=== PATIENT | female | born 1965 | race Caucasian/White ===

== ENCOUNTER 2019-02-17 11:23 | Inpatient (IN) | payer OTHER ==
[~2019-02-17] VITALS: Ht 157.5 cm; Wt 104.2 kg
[~2019-02-17 11:23] MED LIST: CIPRO500 MG PO; FLAGYL500 MG PO; IBUPROFEN 800800 M1 PO; NORCO 5-325 TA1 EACH PO; ONDANSETRON HCL4 M2 PO
[2019-02-17 11:27] VITALS: BP 122/73
[2019-02-17 11:56] LABS: ABSOLUTE BASOPHILS 0.1 thou/uL (0.0-0.2); ABSOLUTE EOSINOPHILS 0.2 thou/uL (0.0-0.7); ABSOLUTE LYMPHOCYTES 1.8 thou/uL (0.8-5.3); ABSOLUTE MONOCYTES 0.7 thou/uL (0.0-1.2); ABSOLUTE NEUTROPHILS 6.9 thou/uL (1.6-8.1); BASOPHILS 0.7 %; EOSINOPHILS 1.6 %; HEMATOCRIT 43.9 % (37.0-47.0); HEMOGLOBIN 15.1 gm/dL (12.0-15.0); LYMPHOCYTES 18.9 %; MCH 29.4 pg (26.0-34.0); MCHC 34.3 g/dL (28.0-37.0); MCV 85.6 fL (80.0-100.0); MONOCYTES 6.8 %; MPV 7.3 fl. (7.2-11.1); NUCLEATED RBCS 0 /100WBC; PLATELET COUNT* 255 thou/uL (150-400); RBC 5.13 mil/uL (4.20-5.00); RDW-CV 13.6 % (10.5-14.5); WBC 9.6 thou/uL (4.0-11.0)
[2019-02-17 12:07] LABS: ANION GAP 7 mmol/L (7-16); BUN 29 mg/dL (7-18); CALCIUM 9.6 mg/dL (8.5-10.1); CHLORIDE 99 mmol/L (98-107); CO2 29 mmol/L (21-32); GLUCOSE 120 mg/dL (70-99); SODIUM 135 mmol/L (136-145)
--- NOTE | 2019-02-17 12:08 | NUR ---
RT AT BEDSIDE ADMINISTERING BREATHING TREATMENT.
[2019-02-17 12:16] LABS: ALBUMIN 3.4 g/dL (3.4-5.0); ALKALINE PHOSPHATASE 102 U/L (46-116); LIPASE 68 U/L (73-393); SGOT 28 U/L (15-37); SGPT 33 U/L (30-65); TOTAL BILIRUBIN 0.6 mg/dL (<0.1-1.0); TOTAL PROTEIN 7.8 g/dL (6.4-8.2); TROPONIN-I LEVEL <0.06 ng/mL (<0.06)
[2019-02-17] MEDS ORDERED: MS CONTIN 60 MG60 M1 PO (12:41)
[2019-02-17] MEDS ORDERED: NEURONTIN 300300 M1 PO (12:42)
[2019-02-17] MEDS ORDERED: OXYCODONE HCL E10 MG PO (12:42)
[2019-02-17] MEDS ORDERED: TUMS PO (12:43)
--- NOTE | 2019-02-17 13:15 | NUR ---
NURSE IN ROOM, TALKING WITH PT. PT EXPRESSED CONCERN ABOUT A MENINGIOMA DIAGNOSED IN 2008, RECHECKED IN 2009. PT ASKED NURSE IF THIS COULD BE A REASON FOR SYNCOPE EPISODES. NURSE STATED SHE WOULD TALK WITH DR. PERSAUD ABOUT PT CONCERNS. PT STATED APPRECIATION. NURSE TALKED WITH DR. PERSAUD, DR. PERSAUD STATED "NO" WHEN NURSE ASKED IF MENINGIOMA WAS CAUSE. PT RELAYED INFORMATION.
--- NOTE | 2019-02-17 16:12 | EKG ---
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: MS : 1965 Requested By: Don Roe Order Number: [id number] MD: Krzysztof Mg Measurements Intervals [place] Rate: 75 P: 6 MT: 152 QRS: 85 QRSD: 98 T: 9 QT: 398 QTc: 445 Interpretive Statements Sinus rhythm RSR' in V1 or V2, right VCD Baseline wander in lead(s) I,III,aVL,aVF,V3,V5 Compared to ECG 04/16/2017 19:36:27 RSR' in V1 or V2 now present T-wave abnormality no longer present Electronically Signed On 02-17-2019 16:11:52 CDT by Krzysztof Mg [email or web address] <ELECTRONICALLY SIGNED> By: Krzysztof Mg MD, [facility] 02/17/19 1611 1210 1210 Krzysztof Mg MD, [facility] /EPI
[2019-02-17 18:11] VITALS: BP 120/71
[2019-02-17 18:21] VITALS: BP 120/71
[2019-02-17 20:00] VITALS: BP 126/79
[2019-02-17] MEDS ORDERED: ALEVE220 MG PO (20:07)
[2019-02-17] MEDS ORDERED: MUCINEX600 MG PO (20:08)
[2019-02-18] VITALS: BP 105/63
[2019-02-18 04:00] VITALS: BP 111/71
--- NOTE | 2019-02-18 05:36 | NUR ---
ASSUMED CARE OF PT AFTER REPORT AT 1930. PT A&OX4. VSS. ADMISSION HISTORY & PHYSICAL ASSESSMENT COMPLETED AND CHARTED. PT ON RA. PT TRACING SR ON TELE. PT UPSTANDBY TO RESTROOM. PT COMPLAINES OF HEADACHE & NAUSEA- MEDS GIVEN PER NOV. PT EXPRESSED CONCERN OF HER MEDS- DR MACKEY INFORMED WITH NEW ORDERS. PT RESTED WELL ON BED. CALL LIGHT WITHIN REACH.
[2019-02-18 07:19] VITALS: BP 119/60
--- NOTE | 2019-02-18 10:51 | NUR ---
SW met with pt and pt mother to complete initial assessment, introduce self, and SW role. Pt alert, oriented, pleasant. Pt lives at home alone with her 6 dogs. Pt has a good support system in neighbors and family. 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 Pt does not anticipate any dc needs at this time. SW to continue to follow to assist with safe dc planning.
[2019-02-18 12:40] VITALS: BP 118/62
--- NOTE | 2019-02-18 16:22 | NUR ---
ASSESSMENT COMPLETE. PT ALERT AND ORIENTED X4. PT GIVEN PRN IBUPROFEN FOR HEADACHE ONE TIME DURING DAY. PT DENIES N/V. TOLERATING MEALS. PT HAD MRI OF HEAD THIS AFTERNOON. NEURO CONSULTED. ECHO AND CAROTID US ORDERED WELL. IV FLUIDS DC'D, ABX CHANGED TO PO. PT HAS LEFT LIMB ALERT. PT HAD IV PLACED BY INFUSION IN RIGHT WRIST, SL. PT IS UP WITH STEADY GAIT. NSR ON TELE MONITOR. LIDAQAUTE SATS ON ROOM AIR, VSS. PT DENIES DIZZINESS WITH STANDING. DENIES SYNCOPE SINCE ADMISSION. SEE ASSESSMENT AND VITALS FOR OTHER DETAILS. CALL LIGHT WITHIN REACH, WILL CONTINUE PLAN OF CARE
[2019-02-18 20:00] VITALS: BP 118/72
[2019-02-18 23:56] VITALS: BP 104/56
[2019-02-19 03:52] VITALS: BP 112/65
[2019-02-19 05:21] LABS: CALCIUM 8.8 mg/dL (8.5-10.1); CREATININE 0.7 mg/dL (0.6-1.3)
[2019-02-19 05:47] LABS: HEMATOCRIT 39.8 % (37.0-47.0); HEMOGLOBIN 13.2 gm/dL (12.0-15.0); MCH 29.1 pg (26.0-34.0); MCHC 33.1 g/dL (28.0-37.0); MCV 87.9 fL (80.0-100.0); MPV 8.2 fl. (7.2-11.1); RBC 4.52 mil/uL (4.20-5.00); RDW-CV 14.2 % (10.5-14.5); WBC 8.7 thou/uL (4.0-11.0)
--- NOTE | 2019-02-19 06:08 | NUR ---
ASSUMED CARE OF PT AFTER REPORT AT 1930. PT A&OX4. VSS. PHYSICAL ASSESSMENT COMPLETED AND CHARTED. PT ON RA. PT TRACING SR ON TELE. PT UPSTANDBY TO RESTROOM. PT DENIES ANY PAIN OR DISCOMFORT. PT RESTED WELL ON BED. HOURLY ROUNDING OBSERVED. CALL LIGHT WITHIN REACH.
[2019-02-19 08:00] VITALS: BP 121/64
--- NOTE | 2019-02-19 08:40 | NUR ---
RECEIVED REPORT FROM ALCIDES AND ASSUMED CARE OF PT @ 5809.PT IS A/O X4,VSS,TRACING SR ON THE MONITOR.IV PATENT AND SALINE LOCKED.PT IS CALM AND COOPERATIVE WITH NO C/O PAIN.PT IS UP AD WILBERT IN THE ROOM.CALL LIGHT WITHIN REACH.WILL CONTINUE TO MONITOR.
--- NOTE | 2019-02-19 12:14 | 2DMMODE ---
[place] [address] 2 D/M-MODE ECHOCARDIOGRAM Name: PHYLILS WORLEY Room: [address] IN [facility]#: [id number] Admission: 02/17/19 Attend Phys: Gene Moran Discharge: Date of : 65 Date of Service: 02/19/19 1214 Report #: [id number] THIS REPORT FOR: //name// APPROVED REPORT Study performed: 02/18/2019 16:33:25 EXAM: Comprehensive 2D, Doppler, and color-flow Echocardiogram Patient Location: In-Patient Room #: [facility] Status: routine BSA: 2.03 HR: 87 bpm BP: 118/62 mmHg Rhythm: NSR Other Information Study Quality: Good Indications Syncope 2D Dimensions IVSd: 11.68 (7-11mm) LVOT Diam: 22.66 (18-24mm) LVDd: 41.03 mm PWd: 12.64 (7-11mm) Ascending Ao: 30.52 (22-36mm) LVDs: 28.89 (25-40mm) Aortic Root: 35.38 mm Volumes Left Atrial Volume (Systole) LA ESV Index: 17.30 mL/m2 Aortic Valve AoV Peak Zafar.: 1.28 m/s AO Peak Gr.: 6.55 mmHg LVOT Max P.60 mmHg AO Mean Gr.: 3.40 mmHg LVOT Mean P.63 mmHg LVOT Max V: 1.18 m/s AO V2 VTI: 22.82 cm LVOT Mean V: 0.74 m/s MARCIE (VTI): 4.51 cm2 LVOT V1 VTI: 25.51 cm Mitral Valve E/A Ratio: 1.47 MV Decel. Time: 198.91 ms MV E Max Zafar.: 0.98 m/[place] [address] 2 D/M-MODE ECHOCARDIOGRAM Name: PHYLLIS WORLEY Room: [address] IN .R.#: [id number] Admission: 02/17/19 Attend Phys: Gene Moran Discharge: Date of : 65 Date of Service: 02/19/19 1214 Report #: [id number] MV PHT: 57.68 ms MVA (PHT): 3.81 cm2 TDI E/Lateral E': 7.54 E/Medial E': 8.17 Medial E' Zafar.: 0.12 m/s Lateral E' Zafar.: 0.13 m/s Pulmonary Valve PV Peak Zafar.: 1.09 m/s PV Peak Gr.: 4.76 mmHg Tricuspid Valve RAP Estimate: 5.00 mmHg TR Peak Gr.: 19.67 mmHg RVSP: 24.00 mmHg PA Pressure: 24.00 mmHg Left Ventricle The left ventricle is normal size. There is normal LV segmental wall motion. There is normal left ventricular wall thickness. Left ventricular systolic function is normal. The left ventricular ejection fraction is within the normal range. LVEF is 60-65%. Grade I - abnormal relaxation pattern. Right Ventricle The right ventricle is normal size. The right ventricular systolic function is normal. Atria The left atrium size is normal. The right atrium size is normal. Aortic Valve The aortic valve is normal in structure. Trace aortic regurgitation. There is no aortic valvular stenosis. Mitral Valve The mitral valve is normal in structure. Trace mitral regurgitation. No evidence of mitral valve stenosis. Tricuspid Valve The tricuspid valve is normal in structure. Mild tricuspid regurgitation. No pulmonary hypertension. Pulmonic Valve The pulmonary valve is normal in structure. [place] [address] 2 D/M-MODE ECHOCARDIOGRAM Name: PHYLLIS WORLEY Room: [address]#: [id number] Admission: 02/17/19 Attend Phys: Gene Moran Discharge: Date of : 65 Date of Service: 02/19/19 1214 Report #: [id number] Great Vessels The aortic root is normal in size. IVC is normal in size and collapses >50% with inspiration. Pericardium There is no pericardial effusion. <Conclusion> LVEF is 60-65%. The left ventricular diastolic function is normal. There is normal LV segmental wall motion. Grade I - abnormal relaxation pattern. There is no aortic valvular stenosis. Trace aortic regurgitation. Trace mitral regurgitation. Mild tricuspid regurgitation. No pulmonary hypertension. <ELECTRONICALLY SIGNED> By: Dawson Lisa MD, FACC 02/19/19 1214 13 13 Dawson Lisa MD, FACC /INF
[2019-02-19 16:21] VITALS: BP 131/69
--- NOTE | 2019-02-19 17:52 | NUR ---
VSS.CARDIAC MONITORING IN PLACE WITH NO CHANGES.PT PROGRESSING TOWARDS GOALS AND POTENTIAL DISCHARGE FOR TOMORROW.PAIN MANAGED WELL WTIH PO MEDICATIONS.IV PATENT AND SALINE LOCKED.EEG COMPLETED TODAY.ECHO COMPLETED TODAY.PT INFORMED OF PLAN OF CARE AND COMMUNICATES UNDERSTANDING.HOURLY ROUNDING COMPLETED FOR PT SAFETY.CALL LIGHT WITHIN REACH.WILL CONTINUE TO MONITOR FOR DURATION OF SHIFT.
[2019-02-19 20:00] VITALS: BP 114/70
[2019-02-19 23:49] VITALS: BP 117/61
[2019-02-20 04:00] VITALS: BP 113/43
--- NOTE | 2019-02-20 05:30 | NUR ---
ASSUMED CARE OF PT AFTER REPORT AT 1930. PT A&OX4. VSS. PHYSICAL ASSESSMENT COMPLETED AND CHARTED. PT ON RA. PT TRACING SR ON TELE. PT DENIES ANY PAIN OR DISCOMFORT. PT RESTED WELL ON BED. HOURLY ROUNDING OBSERVED. CALL LIGHT WITHIN REACH.
--- NOTE | 2019-02-20 08:00 | NUR ---
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 LS CLEAR IN BILATERAL UPPER LOBES, DIMINISHED IN LOWER LOBES. RA. POSSIBLE DISCHARGE THIS SHIFT, EEG RESULTS PENDING, WILL CONT POC.
--- NOTE | 2019-02-20 11:27 | NUR ---
Nutrition: pt with class III mobrid obesity. Pt reports good appetite, denied acute nutrition concerns. Meds and labs reviewed. Pt declined diet edu. Assessed at low nutrition risk.
[2019-02-20 12:46] VITALS: BP 108/73
[2019-02-20] MEDS ORDERED: CEFDINIR300 MG PO (16:04)
[2019-02-20] MEDS ORDERED: AZITHROMYCIN 2250 MG PO (16:04)
[2019-02-20 16:47] VITALS: BP 108/73
[2019-02-20 17:00] VITALS: BP 108/73
[2019-02-20 17:32] VITALS: BP 108/73
--- NOTE | 2019-02-20 18:00 | NUR ---
PT DISCHARGED FROM FACILITY AT APPROX 1745 VIA WHEELCHAIR WITH MOTHER AND NURSING STAFF. PT EDUCATED ON ALL DISCHARGE INSTRUCTIONS INCLUDING FOLLOW UP APPTS AND MEDICATIONS. 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
--- NOTE | 2019-02-21 22:22 | EEG ---
[address] [address] EEG STUDY REPORT Name: BRUNILDAPHYLLIS Horace Room: [address]#: [id number] Admission: 02/17/19 Attend Phys: Gene Rollins, Discharge: 02/20/19 Date of : 65 Report #: [id number] THIS REPORT FOR: //name// CC: Trino Rollins DATE OF SERVICE: 02/19/2019 This patient is being evaluated for syncope. EEG was done by placing the electrodes by standard 10-20 system of electrode placement. Both referential and sequential montages were used for recording. Background activity in this patient's EEG is about 11 Hz and 40 microvolt. The patient became drowsy and that is associated with bilateral slowing and a few vertex sharp waves. Photic stimulation was unremarkable. Throughout the record, no active epileptiform activity was noticed. IMPRESSION: This patient's EEG is unremarkable. Thank you very much for this referral. <ELECTRONICALLY SIGNED> By: Bronson Jay MD 02/21/19 2222 0756 [id number] Jay MD /nt
--- NOTE | 2019-02-21 22:22 | CON ---
[address] [address] CONSULTATION Name: PHYLLIS WORLEY Room: [address]#: [id number] Admission: 02/17/19 Attend Phys: Gene Rollins, Discharge: 02/20/19 Date of : 65 Report #: [id number] THIS REPORT FOR: //name// CC: Trino Rollins DATE OF SERVICE: 02/20/2019 HISTORY OF PRESENT ILLNESS: This is a 53-year-old female patient who was seen yesterday and today. The patient was seen because the patient had 3 or 4 episode over a period of 3-4 year. She said she will have an aura and she will sit down and then she will become better from that. She does not have any memory formation in between. Episodes are very impersistent and typically happen after about 1 year. They have not found any cardiac etiology. She underwent an MRI of the brain and that MRI demonstrated findings consistent with meningioma. The patient believes that the size has doubled since last time. There is some question of sarcoidosis, but the history is not very clear. She had hysterectomy and breast cancer in the past. REVIEW OF SYSTEMS: A 14-point review of system was otherwise unremarkable. PAST MEDICAL HISTORY: Positive for meningioma. FAMILY HISTORY: Negative for any early age stroke. SOCIAL HISTORY: She does not abuse alcohol. PHYSICAL EXAMINATION: NEUROLOGIC: Indicate the patient is alert, responsive, and able to follow simple and complex command. Cranial nerve examination 2-12 looks unremarkable. Strength, sensation, reflexes and tone are symmetrical. I could not look at the fundus. There is no meningeal sign. There is no carotid bruit. GENERAL: She is moderately built individual who has no edema, cyanosis or jaundice. VITAL SIGNS: Blood pressure is 113/43, respiration is 16, pulse is 73, and temperature is 98.6. LABORATORY DATA: Indicate a white count of 8.7 and sodium of 135. MRI demonstrated findings consistent with meningioma. Carotid Doppler is unremarkable. IMPRESSION: Difficult to tell what patient is having, but one of the possibility is seizure or induced by meningioma. The other possibility is some cardiac causes. Workup so far is unremarkable, but the EEG can [place] [address] CONSULTATION Name: WORLEYPHYLLIS Room: [address]#: [id number] Admission: 02/17/19 Attend Phys: Gene Rollins, Discharge: 02/20/19 Date of : 65 Report #: [id number] epilepsy. I discussed options with the patient. I discussed the option of going on seizure medication as a trial versus getting some more workup done. She wants to go to a tertiary care center and get more workup done. She is going to go to [facility] where she will see an epileptologist as well as a neurosurgeon. If she has any further spells, she should come to the Emergency Room and then she will be agreeable for a trial with anticonvulsant. Time spent 50 minutes about half the time counseling and coordinating. <ELECTRONICALLY SIGNED> By: Bronson Jay MD 02/21/19 2222 1211 [id number] Jay MD /nt
--- NOTE | 2019-02-24 16:20 | NUR ---
BENNY called and faxed referral to seizure specialty clinic on pt's behalf and called and informed pt of this. BENNY provided pt the number to the clinic: [phone]. Pt to call back if any issues or if she needs any other assistance in arranging the appt to be able to follow up with a seizure specialist.
== END 2019-02-20 17:45 | disposition home or self-care (01) | DRG 178 ==
LOC: M.ERS 11:23 → M.2W 13:46 → M.TBA-ER 13:46 → M.2W 18:34
PROVIDERS: Emergency Medicine Emergency Medical Services; Internal Medicine; ADMIT Family Medicine
DX: J15.6 Pneumonia due to other Gram-negative bacteria (principal); Z68.41 Body mass index [BMI] 40.0-44.9, adult; E66.01 Morbid (severe) obesity due to excess calories; G89.29 Other chronic pain; G40.909 Epilepsy, unspecified, not intractable, without status epilepticus; D32.9 Benign neoplasm of meninges, unspecified; Z90.710 Acquired absence of both cervix and uterus; Z85.3 Personal history of malignant neoplasm of breast; Z90.13 Acquired absence of bilateral breasts and nipples; Z91.048 Other nonmedicinal substance allergy status; Z79.899 Other long term (current) drug therapy; Z82.49 Family history of ischemic heart disease and other diseases of the circulatory system; Z71.89 Other specified counseling